=== PATIENT | female | born 1990 | race Caucasian/White ===

== ENCOUNTER 2016-08-11 19:36 | Inpatient (IN) | payer OTHER ==
--- NOTE | ~2016-08-11 | DS ---
Unit #: [id number] #: [id number] Patient: JOHNIE MCDONOUGH [id number] [facility] [address] [place] [address] [id number] MR#: [id number] NAME: JOHNIE MCDONOUGH ROOM: [facility] Age: 26 Sex: F Admission Date: 08/11/2016 : 1990 Discharge Date: 08/12/2016 Attending Physician: Hector Jamison M.D. DISCHARGE SUMMARY REASON FOR ADMISSION The patient is a 26-year-old white female, admitted to the -[facility] unit with a history of mood swings, which she felt may be related to history of bipolar disorder. HOSPITAL COURSE The patient was admitted to the -[facility] unit and placed on suicide precautions. She was seen by this physician on the afternoon of 08/12/2016. At that time, she vehemently denied suicidal ideation. She did report a history, which seemed somewhat compelling for diagnosis of bipolar spectrum disorder including positive family history, history of mood swings, early onset of symptoms, etc. Accordingly, the patient was begun on lamotrigine 25 mg at h.s. after discussion of the risks and benefits of this medication. The patient was bright and euthymic and vehemently denied suicidal ideation stating that her 72-hour hold was based on mistaken interpretation of statements made at the time of admission. She unfortunately was unable to participate in the intensive outpatient program and was agreeable to a plan for followup through the auspices of [facility]. Discharge was ordered as per her request on 08/12/2016. FINAL DIAGNOSES Bipolar disorder, depressed phase, mild; alcohol use disorder; cannabis use disorder. DISPOSITION ON DISCHARGE The patient is discharged on the following medications; Lamictal 25 mg nightly with upper titration over the next 5 weeks to 100 mg per manufacture's directions for mood stabilization. No dietary or physical restrictions were placed on the patient at the time of discharge. PROGNOSIS The patient's prognosis is considered good, but will be darkened considerably should she continue to abuse alcohol or cannabis. Dictated by... Hector Jamison M.D. CB/carl TD: 08/13/2016 06:39 JOB #: [id number] Unit #: [id number] #: [id number] Patient: JOHNIE MCDONOUGH DISCHARGE SUMMARY Page 1 of 1 X Hector Jamison MD X DISCHARGE SUMMARY
--- NOTE | ~2016-08-11 | HP ---
Unit #: [id number] #: [id number] Patient: JOHNIE MCDONOUGH [id number] [facility] [address] [place] [address] [id number] MR#: [id number] NAME: JOHNIE MCDONOUGH ROOM: [facility] Age: 26 Sex: F Admission Date: 08/11/2016 : 1990 Attending Physician: Hector Jamison M.D. Admitting Physician: Hector Jamison M.D. Primary Care Physician: Generic Doctor Not In System HISTORY AND PHYSICAL Johnie is a 26 year old who was admitted and discharged within the first 24 hours. She was not seen for an H and P. Dictated by... Indira Lovett P.A.-C. for William Jordan/samuel TD: 08/12/2016 17:52 JOB #: [id number] HISTORY AND PHYSICAL Page 1 of 1 X Indira Lovett X HISTORY AND PHYSICAL
--- NOTE | ~2016-08-11 | PA ---
Unit #: [id number] #: [id number] Patient: JOHNIE MCDONOUGH [id number] [facility] [address] [place] [address] [id number] MR#: [id number] NAME: JOHNIE MCDONOUGH ROOM: P181 Age: 26 Sex: F Admission Date: 08/11/2016 : 1990 Date of Assessment: 08/12/2016 Attending Physician: Hector Jamison M.D. Admitting Physician: Hector Jamison M.D. Primary Care Physician: Generic Doctor Not In System PSYCHIATRIC ASSESSMENT IDENTIFYING INFORMATION The patient is a 26-year-old single white female admitted after she had presented to the [facility] complaining of mood swings. CHIEF COMPLAINT This was a mistake. INFORMANT(S) Patient, reliability is good. HISTORY OF PRESENT ILLNESS The patient is a 26-year-old single white female admitted to the [facility] after she had presented to this facility and made some vague suicidal threat which had necessitated a 72-hour hold. The patient now vehemently denies suicidal ideation. She reports that she had sought treatment at this facility after she had called her insurance company for a referral to see a psychiatrist. The patient had been concerned about recent mood swings some of which involved depressions as well as periods of elevated mood wherein she acted recklessly. The patient denies prior suicide attempt or gestures. She does have a history of some self-mutilating behaviors several years ago. She has an extensive substance abuse history, but now uses only alcohol and cannabis. The patient reports that she is originally from [place], [place]. 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 The patient currently vehemently denies suicidal or homicidal ideation and denies any psychotic symptoms. She does report that her mother suffers from depression. PAST PSYCHIATRIC HISTORY As above, the patient has no prior history of suicide attempts or gestures, and denies any history of psychiatric hospitalization or treatment with psychotropic medications. PAST MEDICAL HISTORY Noncontributory. MEDICATIONS None. ALLERGIES None. FAMILY HISTORY Unit #: [id number] #: [id number] Patient: JOHNIE MCDONOUGH The patient's mother suffers from depression, and her maternal grandmother suffers from schizophrenia. SOCIAL HISTORY The patient lives alone. Her education and vocational history are described previously. The patient is a "sometimes smoker." MENTAL STATUS EXAMINATION Examination at this time reveals the patient to be a well-developed well-nourished white female appearing her stated age. She is in no apparent physical distress at the time of the examination. She is awake, alert, and oriented in all spheres. Her mood is euthymic, her affect full range. Speech is generally well-coherent. There are no gross deficits in memory or cognition noted. Intelligence is judged to be in the average range based on fund of knowledge. The patient is cooperative throughout the interview. She denies current suicidal or homicidal ideation or psychotic features. Judgment and insight appear to be intact. ASSETS AND LIABILITIES The patient's assets: Motivation for change. Liabilities: Possible substance issues. DIAGNOSTIC IMPRESSION 1. Bipolar disorder type 2, depressed phase. 2. Alcohol use disorder. 3. Cannabis use disorder. TREATMENT PLAN At this point, the patient is not meeting criteria for continued involuntary hospitalization requesting discharge. She is agreeable to a trial of lamotrigine after discussion of the risks and benefits of this medication including the risk of Shin-Petr syndrome and . She is instructed to contact this physician immediately should any skin changes occur. She is unfortunately unable to participate in the intensive outpatient program because of work demands, but is agreeable with a plan for followup through the auspices of [facility], and discharge will be ordered. Dictated by... Hector Jamison M.D. MIK/tomas TD: 08/12/2016 14:12 JOB #: [id number] Unit #: [id number] #: [id number] Patient: JOHNIE MCDONOUGH PSYCHIATRIC ASSESSMENT Page 1 of 1 X Hector Jamison MD X PSYCHIATRIC ASSESSMENT
[2016-08-12 09:43] LABS: URINE APPEARANCE CLEAR; URINE BILIRUBIN NEG (NEG); URINE BLOOD NEG (NEG); URINE COLOR YELLOW; URINE GLUCOSE NEG (NEG); URINE KETONE NEG (NEG); URINE LEUKOCYTE ESTERASE NEG (NEG); URINE NITRATE NEG (NEG); URINE PROTEIN NEG (NEG); URINE SPECIFIC GRAVITY 1.023 (1.003-1.035); URINE UROBILINOGEN 0.2 MG/DL (NEG)
[2016-08-12 10:24] LABS: AMPHETAMINE NEG (NEG); BARBITURATES NEG (NEG); BENZODIAZEPINES POS (NEG); COCAINE NEG (NEG); MARIJUANA POS (NEG); OPIATES NEG (NEG); TRICYCLIC ANTIDEPRESSANTS NEG (NEG); U METHADONE NEG (NEG)
[2016-08-12 12:36] LABS: BASOPHIL% 0.5 % (0-2.5); EOSINOPHIL# 0.1 X10e3 (0-0.7); EOSINOPHIL% 1.5 % (0.0-7.0); HEMATOCRIT 38.5 % (35.0-45.0); HEMOGLOBIN 12.8 gm/dL (12.0-16.0); LYMPHOCYTE# 1.6 X10e3 (1.0-3.5); LYMPHOCYTE% 23.7 % (17.0-45.0); MEAN CELL VOLUME 89.3 FL (83-96); MEAN CORPUSCULAR HEMOGLOBIN 29.8 PG (28-34); MEAN CORPUSCULAR HGB CONC 33.3 g/dL (30-36); MEAN PLATELET VOLUME 8.2 FL (6.5-11.5); MONOCYTE# 0.4 X10e3 (0-1.0); MONOCYTE% 6.4 % (3.0-12.0); NEUTROPHIL# 4.6 X10e3 (1.5-7.1); NEUTROPHIL% 67.9 % (40-75); PLATELET COUNT 253 X10e3 (140-420); RED BLOOD COUNT 4.31 X10e (3.90-5.30); RED CELL DISTRIBUTION WIDTH 12.3 % (11.0-15.5); WHITE BLOOD COUNT 6.7 X10e3 (4.0-10.5)
[2016-08-12 12:43] LABS: DIFF IND NO
[2016-08-12 13:47] LABS: THYROID STIMULATING HORMONE 0.84 uIU/ml (0.34-5.60)
[2016-08-12 13:51] LABS: ALBUMIN SERUM 4.2 g/dL (3.5-5.0); BUN/CREATININE RATIO 14.28; CALCIUM SERUM 9.2 mg/dL (8.4-10.2); CREATININE SERUM 0.7 mg/dL (0.6-1.4); GLOM FILT RATE Estimated 119.6 mL/min (>60); POTASSIUM 4.3 mmol/L (3.5-5.1); PROTEIN TOTAL SERUM 6.5 g/dL (6.0-8.3)
[2016-08-12 13:54] LABS: FREE THYROXIN (T4) 0.82 ng/dL (0.58-1.64)
== END 2016-08-12 16:00 | disposition home or self-care (01) | DRG 885 ==
LOC: P1E 19:36 → P2L 08-12 14:29
PROVIDERS: Specialist
DX: F31.81 Bipolar II disorder (principal); F10.10 Alcohol abuse, uncomplicated; F12.90 Cannabis use, unspecified, uncomplicated
CPT/HCPCS: 80053; 80307; 81003; 84439; 84443; 84703; 85025